=== PATIENT | male | born 1990 | race Caucasian/White ===

== ENCOUNTER 2025-06-04 09:22 | Outpatient (REF) | payer MEDICARE, MEDICAID, SELFPAY ==
[2025-06-04 14:29] LABS: Appearance Urine Clear; Glucose Urine UA Negative (Negative); PH 5.5 (5.0-9.0); Specific Gravity - Urine 1.015 (1.005-1.025)
[2025-06-04 15:26] LABS: Alanine Aminotransferase 60 U/L (0-40); Albumin Level 4.4 g/dL (3.5-5.0); Alkaline Phosphatase 71 U/L (39-117); Anion Gap 12 (12-20); Aspartate Amino Transferase 37 U/L (5-37); Blood Urea Nitrogen 16 mg/dL (9-16); Calcium 9.0 mg/dL (8.4-10.2); Carbon Dioxide 23 mmol/L (22-29); Chloride 107 mmol/L (96-108); Cholesterol 124 mg/dL (<200); Estimated Glomerular Filt Rate > 60; HDL Cholesterol 31 mg/dL (>40); Potassium 3.9 mmol/L (3.3-5.1); Sodium 138 mmol/L (135-145); Total Protein 7.1 g/dL (6.5-8.0); Triglycerides 116 mg/dL (<150)
[2025-06-04 15:37] LABS: Microalbum/Creatinine Ratio Ur 10.6 ug/mg cr (<30)
[2025-06-04 16:06] LABS: CT PCR Urine NOT DETECTED (Not Detect.); NG PCR Urine NOT DETECTED (Not Detect.)
[2025-06-05 08:41] LABS: HBS Num1 69.25 mIU/mL (0-7.99); HBc Num1 0.07 S/CO (0.00-0.79); HBsAGNum1 0.48 S/CO (0.00-0.99); HIV Num 1 0.06 S/CO (0.00-0.99); Hepatitis B Surface Antigen Negative (Negative); ~HepC Num1 0.14 S/CO (0.00-0.79); ~Hepatitis B Surface Antibody REACTIVE (Nonreactive); ~Hepatitis C Antibody Nonreactive (Nonreactive)
[2025-06-05 09:12] LABS: Syphilis Screen Nonreactive (Nonreactive)
== END 2025-06-04 09:23 | disposition home or self-care (01) ==
LOC: HO.WFDLDS 09:22
PROVIDERS: PCP Family Medicine; Visit Provider Family Medicine
DX: Z00.00 Encounter for general adult medical examination without abnormal findings (principal); Z11.3 Encounter for screening for infections with a predominantly sexual mode of transmission; I10 Essential (primary) hypertension; E78.00 Pure hypercholesterolemia, unspecified; E11.9 Type 2 diabetes mellitus without complications; G80.9 Cerebral palsy, unspecified; E66.9 Obesity, unspecified; Z79.84 Long term (current) use of oral hypoglycemic drugs; Z79.899 Other long term (current) drug therapy; Z68.37 Body mass index [BMI] 37.0-37.9, adult
CPT/HCPCS: 80053; 80061; 81003; 82043; 82570; 83036; 84443; 86704; 86706; 86780; 86803; 87340; 87389; 87491; 87591; 96127; 99202

== ENCOUNTER 2025-06-04 09:22 | Outpatient (AMB) | payer MEDICAID, SELFPAY ==
--- NOTE | 2025-06-04 09:25 | MHC.PC.OV ---
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 ?? Prior PCP:? Dr Kay Last office visit/CPE:? > 1 yr Acute issue(s):? Needs new meter - Insurance covers: [employer] ?? PMHx:? Cerebral palsy w/ mild R sided weakness, HTN, HLD, DM. SurgHx:?None FHx:? Dad: Unknown. Mom: DM, CAD. SocHx: Nonsmoker. EtOH: Social/2x a year. No drugs PFSH Medical History (Updated 06/04/25 @ 09:52 by Mario Carter) High cholesterol HTN (hypertension) Diabetes Surgical History (Updated 06/04/25 @ 09:37 by Eliezer Cortes MA) No pertinent past surgical history Family History (Updated 06/04/25 @ 09:38 by Eliezer Cortes MA) Mother Diabetes Social History (Updated 06/04/25 @ 09:26 by Eliezer Cortes MA) Housing: Apartment Alcohol intake: current Alcohol intake frequency: a few times a month Patient Tobacco Use Status: Never used Tobacco e-Cigarette/Vaping Use: Never Used Second Hand Smoke Exposure: No service: No Current occupational status: disabled Cognitive needs: No Hearing needs: Yes Vision needs: Yes (wear glasses) Questionnaire PHQ-9 Over the last 2 weeks, how often have you been bothered by any of the following problems? 1. Little interest or pleasure in doing things: not at all 2. Feeling down, depressed, or hopeless: not at all 3. Trouble falling or staying asleep, or sleeping too much: not at all 4. Feeling tired or having little energy: several days 5. Poor appetite or overeating: not at all 6. Feeling bad about yourself - or that you are a failure or have let yourself or your family down: several days 7. Trouble concentrating on things, such as reading the newspaper or watching television: not at all 8. Moving or speaking so slowly that other people could have noticed. Or the opposite - being so fidgety or restless that you have been moving around a lot more than usual: not at all 9. Thoughts that you would be better off or of hurting yourself in some way: not at all Total score: 2 Depression Screening Interpretation: Negative Depression Screening Done: Yes 42733 - PHQ-9 Billing: Yes Source: Developed by Drs. Faisal Us, Carlota Parnell, Austin Michaud and colleagues, with an educational derrell from [employer]. Thrive Questionnaire Date Thrive assessed: 06/04/25 I am a: Patient What is your living situation today?: I have a place to live, but I am worried about losing it in the future Within the past 12 months, did the food you bought not last and you didn't have the money to get more?: Never true Within the past 12 months, did you worry whether your food would run out before you got money to buy more?: Never true Do you have trouble paying for medicines?: No Do you have trouble getting transportation to medical appointments?: I choose not to answer this question Do you have trouble paying your heating and electricity bill?: No Do you have trouble taking care of your child, family member or friend?: No Do you have trouble with day-to-day activities such as bathing, preparing meals, shopping, managing finances, etc.?: No Are you currently unemployed and looking for a job?: No Are you interested in more education?: No Please select the resources that you would like help with: None Currently or been in a relationship where the following occur: No concerns reported THRIVE Score: 1 AUDIT C Alcohol Use Questionnaire (AUDIT-C) 1. How often do you have a drink containing alcohol?: Monthly or less 2. How many drinks containing alcohol do you have on a typical day when you are drinking?: 1 or 2 3. How often do you have six or more drinks on one occasion?: Never Total Score: 1 MAGDA-7 AMB Questionnaire MAGDA-7 Date MAGDA - 7 assessed: 06/04/25 Feeling nervous, anxious, or on edge: 0 = Not at all Not being able to stop or control worryin = Not at all Worrying too much about different things: 0 = Not at all Trouble relaxin = Not at all Being so restless that it is hard to sit still: 0 = Not at all Becoming easily annoyed or irritable: 0 = Not at all Feeling afraid as if something awful might happen: 0 = Not at all Total MAGDA-7 score (0-4 normal; 5-9 mild; 10-14 moderate; 15-21 severe): 0 Source: Developed by Drs. Faisal Us, Carlota Parnell, Austin Michaud and colleagues, with an educational derrell from [employer]. MAGDA-7 Assessment Billing MAGDA-7 Assessment Tool: MAGDA-7 Assessment 27308 Review of Systems Const Denies chills, Denies fatigue, Denies fever(s), Denies headache(s) and Denies weakness ENT Denies dizziness and Denies headache(s) Card Denies chest pain, Denies lightheadedness, Denies dyspnea and Denies other (Palpitations) Resp Denies cough, Denies dyspnea, Denies wheezing and Denies other ( shortness of breath) Musc Denies numbness and Denies tingling Neuro Denies dizziness, Denies headache(s), Denies numbness, Denies tingling, Denies paresthesias and Denies weakness Psych Denies anxiety and Denies depression Endo Denies fatigue Aller/Immun Denies wheezing Physical exam (Primary Care) Vital Signs: Last Vital Signs Temp 96.3 F L 06/04/25 09:32 Pulse 75 06/04/25 09:32 Resp 12 06/04/25 09:32 BP 137/77 06/04/25 09:32 Pulse Ox 98 06/04/25 09:32 Oxygen Delivery Method Room Air 06/04/25 09:32 BMI result Body Mass Index 37.3 Tobacco/Smoking Status: Tobacco use Status Tobacco use date assessed 06/04/25 06/04/25 09:28 Patient Tobacco Use Status Never used Tobacco 06/04/25 09:28 e-Cigarette/Vaping Use Never Used 06/04/25 09:28 PHQ-9: PHQ-9 Score PHQ-9: Total score 2 06/04/25 09:28 Depression Screening Interpretation: Negative Thrive Assessment: Date of Thrive Assessment Date Thrive assessed 06/04/25 06/04/25 09:28 Currently or been in a relationship where the following occur: No concerns reported Const General: no acute distress and well developed Nutritional Appearance: well nourished Orientation/consciousness: patient oriented x3 HENMT Head: Yes normocephalic and Yes atraumatic Eyes General: appearance normal, both eyes and all related structures Pupils: Equal, round and reactive pupils present EOM: EOMs intact bilaterally Resp Effort & Inspection: normal respiratory effort Auscultation: clear to auscultation bilaterally Cardio Rate: regular rate Rhythm: regular rhythm Heart sounds: S1 normal heart sound present, S2 normal heart sound present, no gallops, no murmurs and no rubs Neuro General: patient oriented x3 and gait normal Cranial nerves: Yes Equal, round and reactive pupils present Psych Affect: normal affect Results AMB Hemoglobin A1c AMB Hemoglobin A1c 5.9 % Last Edit by Eliezer Cortes MA on 06/04/25 09:41 Results Reviewed Results Reviewed: Laboratory Last Values Hgb A1c (Clinic) 5.9 % (4.0-6.0) 06/04/25 09:38 Coding Level of Care Code New Pt Level 3 (70907) Diagnoses HTN (hypertension) I10 High cholesterol E78.00 Diabetes E11.9 Obesity E66.9 Laboratory exam ordered as part of routine general medical examination Z00.00 Additional Codes MAGDA-7 Assessment Billing - MAGDA-7 Assessment Tool: MAGDA-7 Assessment 50915 ([id number]) PHQ-9 - 92910 - PHQ-9 Billing: Yes ([id number]) Assessment & Plan Assessment & Plan (1) HTN (hypertension): Code(s): I10 - Essential (primary) hypertension Category: Medical Plan: Blood pressure is controlled. Goal is less 140/90 Continue current medication (2) High cholesterol: Code(s): E78.00 - Pure hypercholesterolemia, unspecified Category: Medical Plan: Continue atorvastatin Check lipids (3) Diabetes: Code(s): E11.9 - Type 2 diabetes mellitus without complications Category: Medical Plan: A1c 5.9%.. Good control. Goal is less 7% Continue current medication Continue diabetic diet & exercise Patient is followed by [facility] for diabetic eye exams. Needs a new meter and test strips. - insurance covers Accu-Chek - will send. (4) Obesity: Code(s): E66.9 - Obesity, unspecified Category: Medical Plan: Will continue to monitor. Briefly discuss that we could consider a GLP 1 medication future. (5) Laboratory exam ordered as part of routine general medical examination: Code(s): Z00.00 - Encounter for general adult medical examination without abnormal findings Category: Medical Plan: Check Labs Orders: Orders Comprehensive [place]. Panel Fast Today Z00.00 - Encounter for general adult medical examination without abnormal findings Hepatitis B,C Profile Today Z11.3 - Encounter for screening for infections with a predominantly sexual mode of transmission Syphilis Screen Today Z11.3 - Encounter for screening for infections with a predominantly sexual mode of transmission AMB Hemoglobin A1c Today Z13.9 - Encounter for screening, unspecified Lipid Panel Today Z00.00 - Encounter for general adult medical examination without abnormal findings Microalbumin, Random (w Creat) Today I10 - Essential (primary) hypertension UA CC w/rflx Micro + Cult Today Z00.00 - Encounter for general adult medical examination without abnormal findings TSH reflex Free T4 Today Z00.00 - Encounter for general adult medical examination without abnormal findings CT NG by PCR Urine Today Z11.3 - Encounter for screening for infections with a predominantly sexual mode of transmission HIV Ab/Ag Today Z11.3 - Encounter for screening for infections with a predominantly sexual mode of transmission
[2025-06-04 09:32] VITALS: BP 137/77; PULSE 75; RESP 12; TEMP 35.7; O2SAT 98; BMI 37.3
--- OUTSIDE RECORDS SUMMARY | 2025-06-04 09:49 | XMS_ITS | Clinical Summary ---
Author Organization [facility] Address [address] [place] [id number] Phone Care Team Providers Care Optometry Doctor Name Role Phone Unavailable Primary Care Provider Unavailabl e Immunizations Immunization Administration Dates Next Due DTaP 07/25/1997, 4,1992, 992,1992 Hep B, ped/adol 06/25/1995,07/25/1993,01/23/1993 Hib (PRP-T) 11/25/1993, 3,1992, 992 MMR 07/25/1997,05/25/1993 Meningococcal Conj (Menactra) MCV4P 01/16/2010 OPV 07/25/1997, 4,1992, 992 Tdap 01/16/2010,12/03/2003 Varicella 01/16/2010,11/23/2001 Family History Relation Name Status Comments Father Alive Substance abuse age: 48 Maternal Grandfather Alive arthrit is..gout Maternal Grandmother Alive arthrit is, hyperlipidemia Mother Alive healthy age: 49 Other Alive Siblings: healt hy 1 of 3 brothers is a twin. Paternal Grandfather ETOH... related to ETOH abuse Paternal Grandmother Alive unknown Social History Tobacco Use Types Packs/Day Years Used Date Smoking Tobacco: Never Assessed Sex and Gender Information Value Date Recorded Sex Assigned at Not on file Legal Sex Male 6:27 PM EDT Gender Identity Not on file Sexual Orientation Not on file Last Filed Vital Signs Vital Sign Reading Time Taken Comments Blood Pressure 120/78 01/16/2010 12:00 AM EDT Pulse - - Temperature 36.2 C (97.1 F) 12/19/2010 12:00 AM EST Respiratory Rate - - Oxygen Saturation - - Inhaled Oxygen Concentration - - Weight 103 kg (226 lb 12.8 oz) 12/19/2010 12:00 AM EST Height 167 cm (5' 5.75 ) 01/16/2010 12:00 AM EDT Body Mass Index - - Plan of Treatment Health Maintenance Due Date Last Done Comments HPV Vaccines (1 - 3-dose SCDM series) 2019 DTaP,Tdap,and Td Vaccines (8 - Td or Tdap) 01/17/2020 01/16/2010, 12/03/2003, 07/25/1997, Additional history exists COVID-19 Vaccine (2023-) 06/25/2024 Influenza Vaccines (#1) 2025 HIB Vaccines Completed 11/25/1993, 10/1992, 1992, Additional history exists Hepatitis B Vaccines Completed 06/25/1995, 07/25/1993, 01/23/1993 IPV Vaccines Completed 07/25/1997, 10/1993, 1992, Additional history exists MMR Vaccines Completed 07/25/1997, 05/25/1993 Meningococcal Vaccine Completed 01/16/2010 Varicella Vaccines Completed 01/16/2010, 11/23/2001 Hepatitis A Vaccines Aged Out No long er eligible based on patient's age to complete this topic Men B Vaccine Aged Out No longer elig ible based on patient's age to complete this topic Pneumococcal Vaccine Aged Out No long er eligible based on patient's age to complete this topic
== END 2025-06-04 10:00 | disposition home or self-care (01) ==
LOC: HO.HMCFM 09:22
PROVIDERS: PCP Family Medicine; Visit Provider Family Medicine
DX: I10 Essential (primary) hypertension (principal); E11.9 Type 2 diabetes mellitus without complications; E66.9 Obesity, unspecified; Z68.37 Body mass index [BMI] 37.0-37.9, adult; E78.00 Pure hypercholesterolemia, unspecified

== ENCOUNTER 2025-09-13 11:33 | Outpatient (AMB) | payer MEDICARE, MEDICAID, SELFPAY ==
--- NOTE | 2025-09-13 11:54 | A.OFFPC_ITS ---
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 Allergies No Known Allergies Allergy (Verified 09/13/25 11:56) Medication List - Last Reconciled 09/13/25 by Nic ePoples MD atorvastatin (Lipitor) 40 mg PO DAILY 90 days lisinopril 2.5 mg PO DAILY metformin 500 mg PO BID omega-3 fatty acids 500 mg PO DAILY 30 days valacyclovir 500 mg PO Q12H 14 days Tobacco use date assessed: 09/13/25 Dental Screening Dental Screen Date: 09/13/25 Did you have a dental visit in the last 12 months?: No Did you have a dental problem in the last 6 months where you did not have access to dental care?: No Was dental information given to patient?: No HPI CPE with f/u labs, health maint HPI Details 35 y/o male presents for a CPE with f/u labs and health maint. Labs drawn 06/04/25. Reviewed labs with pt. Elevated ALT of 60. AST 37. Triglycerides 116. TC 124. LDL 70. HDL low at 31. He is on artovastatin 40mg daily. Blood pressure today 130/80, 67p. He is on lisinopril 2.5mg daily. Hx diabetes. A1c today 09/13/25 is 6.0%. He is on metformin 500mg b.i. [facility] Medical History High cholesterol HTN (hypertension) Diabetes Surgical History No pertinent past surgical history Family History Mother Diabetes Social History Housing: Apartment Alcohol intake: current Alcohol intake frequency: a few times a month Patient Tobacco Use Status: Never used Tobacco e-Cigarette/Vaping Use: Never Used Second Hand Smoke Exposure: No service: No Current occupational status: disabled Current occupational exposures/hazards: No Cognitive needs: No Hearing needs: Yes Vision needs: Yes (wear glasses) Questionnaire PHQ-9 Over the last 2 weeks, how often have you been bothered by any of the following problems? 1. Little interest or pleasure in doing things: not at all 2. Feeling down, depressed, or hopeless: not at all 3. Trouble falling or staying asleep, or sleeping too much: not at all 4. Feeling tired or having little energy: not at all 5. Poor appetite or overeating: not at all 6. Feeling bad about yourself - or that you are a failure or have let yourself or your family down: not at all 7. Trouble concentrating on things, such as reading the newspaper or watching television: several days 8. Moving or speaking so slowly that other people could have noticed. Or the opposite - being so fidgety or restless that you have been moving around a lot more than usual: several days 9. Thoughts that you would be better off or of hurting yourself in some way: not at all Total score: 2 Depression Screening Interpretation: Negative Depression Screening Done: Yes 82880 - PHQ-9 Billing: Yes Source: Developed by Drs. Faisal Us, Carlota Parnell, Austin Michaud and colleagues, with an educational derrell from [email or web address]. Thrive Questionnaire Date Thrive assessed: 09/13/25 I am a: Patient What is your living situation today?: I have a place to live, but I am worried about losing it in the future Within the past 12 months, did the food you bought not last and you didn't have the money to get more?: Never true Within the past 12 months, did you worry whether your food would run out before you got money to buy more?: Never true Do you have trouble paying for medicines?: No Do you have trouble getting transportation to medical appointments?: I choose not to answer this question Do you have trouble paying your heating and electricity bill?: No Do you have trouble taking care of your child, family member or friend?: No Do you have trouble with day-to-day activities such as bathing, preparing meals, shopping, managing finances, etc.?: No Are you currently unemployed and looking for a job?: No Are you interested in more education?: No Please select the resources that you would like help with: None Currently or been in a relationship where the following occur: No concerns reported THRIVE Score: 1 AUDIT C Alcohol Use Questionnaire (AUDIT-C) 1. How often do you have a drink containing alcohol?: Monthly or less 2. How many drinks containing alcohol do you have on a typical day when you are drinking?: 1 or 2 Total Score: 1 Score Reviewed/Action Taken: Yes MAGDA-7 AMB Questionnaire MAGDA-7 Date MAGDA - 7 assessed: 09/13/25 Feeling nervous, anxious, or on edge: 1 = Several days Not being able to stop or control worryin = Several days Worrying too much about different things: 0 = Not at all Trouble relaxin = Not at all Being so restless that it is hard to sit still: 0 = Not at all Becoming easily annoyed or irritable: 0 = Not at all Feeling afraid as if something awful might happen: 0 = Not at all Total MAGDA-7 score (0-4 normal; 5-9 mild; 10-14 moderate; 15-21 severe): 2 Source: Developed by Drs. Faisal Us, Carlota Parnell, Austin Michaud and colleagues, with an educational derrell from [email or web address]. MAGDA-7 Assessment Billing MAGDA-7 Assessment Tool: MAGDA-7 Assessment 15999 ACT Questionnaire In the past 4 weeks, how much of the time did your asthma keep you from getting as much done at work, school or at home?: None of the time During the past 4 weeks, how often have you had shortness of breath?: Not at all During the past 4 weeks, how often did your asthma symptoms wake you up at night or earlier than usual in the morning?: Not at all During the past 4 weeks, how often have you had to use your rescue inhaler or nebulizer medication?: Not at all How would you rate your asthma control during the past 4 weeks?: Completely c ontrolled ACT Interpretation: Negative Score: 25 Review of Systems Const Denies chills, Denies fatigue, Denies fever(s), Denies headache(s) and Denies weakness Eyes Denies change in vision ENT Denies dizziness, Denies headache(s), Denies hearing loss, Denies nasal congestion, Denies sinus pain, Denies sinus pressure and Denies sore throat Card Denies chest pain, Denies lightheadedness, Denies dyspnea and Denies other (palp itations) Resp Denies cough, Denies dyspnea and Denies wheezing GI Denies abdominal pain, Denies melena, Denies hematochezia, Denies change in bowel habits, Denies dyspepsia and Denies nausea Denies hematuria and Denies dysuria Musc Denies abnormal gait, Denies myalgias, Denies arthralgias, Denies numbness and Denies tingling Skin/Breast Denies rash, Denies unusual bruising and Denies wounds Neuro Denies abnormal gait, Denies dizziness, Denies headache(s), Denies memory loss, Denies numbness, Denies Sensory deficit (Neuro), Denies tingling and Denies weakness Psych Denies anxiety, Denies depression and Denies memory loss Endo Denies cold intolerance, Denies fatigue, Denies heat intolerance, Denies polydipsia and Denies polyuria Jatin/Lymph Denies easy bleeding and Denies easy bruising Aller/Immun Denies wheezing Physical exam (Primary Care) Vital Signs: Last Vital Signs Temp 98.7 F 09/13/25 12:00 Pulse 67 09/13/25 12:00 Resp 14 09/13/25 12:00 BP 130/80 09/13/25 12:00 Pulse Ox 98 09/13/25 12:00 Oxygen Delivery Method Room Air 09/13/25 12:00 BMI result Body Mass Index 37.2 Tobacco/Smoking Status: Tobacco use Status Tobacco use date assessed 09/13/25 09/13/25 12:02 Patient Tobacco Use Status Never used Tobacco 09/13/25 11:54 e-Cigarette/Vaping Use Never Used 09/13/25 11:54 PHQ-9: PHQ-9 Score PHQ-9: Total score 2 09/13/25 12:38 Depression Screening Interpretation: Negative Thrive Assessment: Date of Thrive Assessment Date Thrive assessed 09/13/25 09/13/25 12:02 Currently or been in a relationship where the following occur: No concerns reported Const General: no acute distress, well developed, alert and awake Nutritional Appearance: well nourished Orientation/consciousness: patient oriented x3 [facility] Head: Yes normocephalic and Yes atraumatic Ears: hearing grossly normal bilaterally and TM's normal bilaterally General nose exam: Normal external nose present and Normal nares present Mouth: Normal oral and palatal mucosa present and moist mucous membranes Teeth and gingiva: dentition normal Throat: Yes posterior oropharynx normal Eyes General: appearance normal, both eyes and all related structures Pupils: Equal, round and reactive pupils present and Pupil accommodation reflex normal EOM: EOMs intact bilaterally Neck Neck: Yes normal visual inspection, Yes no lymphadenopathy and Yes trachea midline Thyroid: Thyroid normal Carotids: no bruits Lymphatic: no lymphadenopathy noted Chest Chest palpation & inspection: normal inspection of the chest Resp Effort & Inspection: normal respiratory effort Auscultation: clear to auscultation bilaterally Cardio Rate: regular rate Rhythm: regular rhythm Heart sounds: S1 normal heart sound present, S2 normal heart sound present, no gallops, no murmurs and no rubs Bruits: no abdominal aortic bruits and no carotid bruits GI Palpation (GI): No Abdominal aortic bruit present, Soft to palpation, nontender, No hepatosplenomegaly present and No Rebound tenderness present Auscultation: normal bowel sounds General: Yes no CVA tenderness Back/Spine/Pelvis Back: no CVA tenderness Cervical Spine: cervical ROM normal and No Cervical spine tenderness Thoracic/Lumbar Spine: thoraco-lumbar ROM normal, No pain with thoraco-lumbar ROM, No thoracic spinal tenderness and No lumbar spinal tenderness Skin Lesions: no lesions Rashes: no rashes Trauma: no lacerations or abrasions Wounds: no wounds Nails: normal Neuro General: patient oriented x3 Cranial nerves: Yes Equal, round and reactive pupils present Cognition (Neuro): normal cognition Gait exam (Neuro): Normal gait present Motor exam (neuro): 5/5 motor strength present throughout Sensory Exam: No Sensory deficit (Neuro) Deep tendon reflexes (DTR's): Right patellar reflex intensity grade: 2+ and Left patellar reflex intensity grade: 2+ Extrem General: Yes normal to inspection and No edema Psych Appearance: grossly normal Affect: normal affect Attitude: cooperative Thought process: Normal thought process present Coding Level of Care Code Est Pt Level 3 (68260) Est Pt Prev Care 18-39y(47682) Diagnoses Adult general medical exam Z00.00 HTN (hypertension) I10 High cholesterol E78.00 Diabetes E11.9 Cerebral palsy G80.9 Elevated liver enzymes R74.8 Additional Codes Asthma Control Questionnaire - ACT Interpretation: Negative ([id number]) MAGDA-7 Assessment Billing - MAGDA-7 Assessment Tool: MAGDA-7 Assessment 84120 ([id number]) PHQ-9 - 93549 - PHQ-9 Billing: Yes ([id number]) Assessment & Plan Assessment & Plan (1) Adult general medical exam: Code(s): Z00.00 - Encounter for general adult medical examination without abnormal findings Category: Medical Plan: 35-year-old male with history of CP presents for complete physical exam Exam within normal limits except as described below Encouraged healthy diet with active lifestyle and plenty of exercise (2) HTN (hypertension): Code(s): I10 - Essential (primary) hypertension Category: Medical Plan: Blood pressure is controlled. Goal is less than 140/90 Continue current medication (3) High cholesterol: Code(s): E78.00 - Pure hypercholesterolemia, unspecified Category: Medical Plan: Patient is on atorvastatin TC and LDL cholesterol are well controlled. HDL is low He can try in [place] 3 fatty acid capsule Continue working at diet and I encouraged increased exercise (4) Diabetes: Code(s): E11.9 - Type 2 diabetes mellitus without complications Category: Medical Plan: A1c climbed slightly from 5.9% to 6.0%. Still well controlled. Goal is less than 7% Continue current medication Encouraged diabetic diet and weight control (5) Cerebral palsy: Comment: Mild right-sided weakness Code(s): G80.9 - Cerebral palsy, unspecified Category: Medical Plan: History of cerebral palsy with mild right-sided weakness Patient also notes decreased hearing but declines further investigation at this time He says he has had no recent acute changes (6) Elevated liver enzymes: Code(s): R74.8 - Abnormal levels of other serum enzymes Category: Medical Plan: Elevated ALT Likely secondary to fatty liver disorder Does not drink alcohol or use much Tylenol Encouraged good hydration and weight loss Will recheck liver enzymes at next blood draw If still elevated will check an ultrasound Orders: Orders Lipid Panel Today E78.00 - Pure hypercholesterolemia, unspecified, Z00.00 - Encounter for general adult medical examination without abnormal findings Comprehensive [place]. Panel Fast Today E78.00 - Pure hypercholesterolemia, unspecified, Z00.00 - Encounter for general adult medical examination without abnormal findings Medications: New valacyclovir 500 mg PO Q12H 28 tabs 1RF 14 days omega-3 fatty acids 500 mg PO DAILY 30 caps 3RF 30 days
[2025-09-13 12:00] VITALS: BP 130/80; PULSE 67; RESP 14; TEMP 37.1; O2SAT 98; BMI 37.2
== END 2025-09-13 12:56 | disposition home or self-care (01) ==
LOC: HO.HMCFM 11:33
PROVIDERS: PCP Family Medicine; Visit Provider Family Medicine
DX: Z00.00 Encounter for general adult medical examination without abnormal findings (principal); E11.9 Type 2 diabetes mellitus without complications; G80.9 Cerebral palsy, unspecified; I10 Essential (primary) hypertension; E78.00 Pure hypercholesterolemia, unspecified; R74.01 Elevation of levels of liver transaminase levels

== ENCOUNTER → 2025-09-13 11:33 | Outpatient (BNVA) | payer MEDICARE, MEDICAID, SELFPAY | PROVIDERS: PCP Family Medicine; Visit Provider Family Medicine | DX: Z00.00 Encounter for general adult medical examination without abnormal findings (principal); Z71.2 Person consulting for explanation of examination or test findings; I10 Essential (primary) hypertension; E78.00 Pure hypercholesterolemia, unspecified; E11.9 Type 2 diabetes mellitus without complications; G80.9 Cerebral palsy, unspecified; R74.8 Abnormal levels of other serum enzymes; Z13.31 Encounter for screening for depression; Z13.39 Encounter for screening examination for other mental health and behavioral disorders; Z71.89 Other specified counseling | CPT/HCPCS: 83036; 96127; 96160; 99395 ==